=== PATIENT | female | born 1995 | race Caucasian/White ===

== ENCOUNTER 2019-07-12 17:41 | Inpatient (IN) | payer BC ==
[~2019-07-12 17:41] MED LIST: Bupivacaine 0.25% HCL 30 ML VIAL ONE
[2019-07-12 18:22] VITALS: BMI 27.8
[2019-07-12] MEDS ORDERED: Ondansetron PF 4 MG/2 ML Vial IVP PRN (18:23)
[2019-07-12] MEDS ORDERED: NS / Oxytocin 40 units/1000ml 1,000 ML IV PRN (18:23)
[2019-07-12] MEDS ORDERED: Ibuprofen 800 MG TAB PO PRN (18:23)
[2019-07-12] MEDS ORDERED: Promethazine HCl 25 MG/ML VIAL IM PRN (18:23)
[2019-07-12] MEDS ORDERED: hydrALAZINE 20 MG/ML VIAL SLOW IVP PRN (18:23)
[2019-07-12] MEDS ORDERED: Lidocaine 1% (PF) 30 ML VIAL SC PRN (18:23)
[2019-07-12] MEDS ORDERED: Butorphanol Tartrate 1 MG/ML VIAL SLOW IVP PRN (18:23)
[2019-07-12] MEDS ORDERED: Acetaminophen 500 MG TAB PO PRN (18:23)
[2019-07-12] MEDS ORDERED: Fentanyl 4 mcg/Bup 0.1% Cadd 100 ML ONE (18:44)
[2019-07-12 19:01] LABS: Hemoglobin 14.2 g/dL (12.0-16.0); Mean Corpuscular HGB CONC 33.6 g/dL (32.0-36.0); Mean Corpuscular Hemoglobin 29.9 pg (27.0-31.0); Mean Corpuscular Volume 88.9 fL (78.0-98.0); Mean Platelet Volume 8.2 fL (7.4-10.4); Platelet Count 229 thou/uL (130-400); RBC Distribution Width 11.9 % (11.5-14.5); Red Blood Cell (RBC) Count 4.74 mill/uL (4.20-5.40); White Blood Cell (WBC) Count 16.7 thou/uL (4.8-10.8)
[2019-07-12] MEDS: Vancomycin HCl 1 GM in Premix Bag 1 BAG IVPB SCH (19:29)
--- NOTE | 2019-07-12 19:29 | PDOC.LDHP ---
Labor and Delivery H&P Chief complaint: contractions (Started at 230pm today) HPI: at 40 weeks with onset of contractions at 230pm today. Increasing in strength and frequency. No LOF. Good FM reported. Current gestational age (weeks): 40 Due date: 07/10/19 Dating criteria: last menstrual period Grav: 1 Para: 0 Current complications: none Abnormal US findings: No Current medications: pre- vitamins Previous surgical history: none Allergies/Adverse Reactions: Allergies Allergy/AdvReac Type Severity Reaction Status Date / Time amoxicillin Allergy Verified 07/12/19 18:20 lanolin Allergy Verified 07/12/19 18:20 Penicillins Allergy Verified 07/12/19 18:20 Social history: none - Physical Exam Vital signs reviewed and normal: yes General: breathing through contractions (Uncomfortable) Heart: RRR Lungs: CTAB Abdomen: gravid Extremeties: no edema FHT: category 2, variable decelerations (x1 while on her back, resolved with repositioning), variability present [place] contractions every: 2 minutes - Vaginal Exam cm dilated: 3 Effacement: 100% Station: -1 - OB Labs Blood type: A RH: positive Antibody Screen: negative HIV: negative RPR: negative HEPSAg: negative 1 hour GCT: negative GBS: positive Urine drug screen: not done Rubella: immune - Assessment L&D Assessment: term patient in labor - Plan Plan: admit to L&D, labor augmentation if indicated, GBS antibiotic prophylaxis (Vancomycin b/c of PCN allergy), informed consent obtained, anesthesia consult for pain management
[2019-07-12 19:40] LABS: Syphilis Antibody Nonreactive (Nonreactive); Syphilis Antibody Index 0.04 S/CO (<1.00 Non-Reactive)
--- NOTE | 2019-07-12 19:56 | PDOC.EVN ---
Event Note - Event Note Event Note: Patient just got epidural. Comfortable now. SVE 4/100/-1. Bulging bag. AROM with thick green meconium. Montoya placed per RN. CTX every 2 minutes. Continue expectant management. NICU at delivery for MSAF. FHT category II - continue external monitor for now.
[2019-07-13 01:33] LABS: HBSAg Index 0.33 S/CO (0-0.99); Hep B Surf Ag Non-Reactive S/CO (NonReactive)
[2019-07-13] MEDS ORDERED: Fentanyl 4 mcg/Bup 0.1% Cadd 100 ML ONE ×2 (02:08→08:30)
[2019-07-13] MEDS: Lactated Ringer's 1,000 ML IV SCH ×3 (05:33→11:59)
[2019-07-13] MEDS ORDERED: diphenhydrAMINE 50 MG/ML VIAL IVP SCH (06:00)
[2019-07-13] MEDS ORDERED: Lidocaine 1% (PF) 30 ML VIAL ONE (07:01)
[2019-07-13] MEDS ORDERED: NS / Oxytocin 40 units/1000ml 1,000 ML ONE (07:01)
[2019-07-13] MEDS: Vancomycin HCl 1 GM in Premix Bag 1 BAG IVPB SCH (07:15)
[2019-07-13] MEDS ORDERED: FLU VACC QS2019-20(6MOS UP)/PF 60 MCG/0.5 ML SYRINGE IM ONE (09:00)
[2019-07-13 10:28] LABS: Actual Bicarbonate (HCO3a) 20.2 mEq/L (22-28); Base Excess (BEa) -5.7 mEq/L (-2.0 to +3.0)
[2019-07-13 10:30] LABS: Actual Bicarbonate (HCO3v) 20 mEq/L (22-28); Base Excess -5.6 mEq/L (-2.0 to +3.0); pH (Cord, venous) 7.31 (7.32-7.43)
--- NOTE | 2019-07-13 10:43 | PDOC.OPDEL ---
OB Operative/Delivery Note Delivery Dr/Surgeon: Chi Pre-Delivery Diagnosis: active labor Procedure/Post Delivery Dx: spontaneous vaginal delivery (Head OA, nuchal cord x2, shoulders and body esaily followed. Mouth and nares bulb suctioned and infant stimulated and dried. Vigorous cry. Placed on mother's chest.) Weeks gestation: 40 Anesthesia: epidural - Findings A Sex: male - 1 min: 8 - 5 min: 10 - Additional Findings/Plan Placenta delivered: spontaneous (Intact, sent to pathology for maternal fever) Repaired Obstetrical Laceration: 2nd degree (Left labial, 2nd degree perineal repaired with 2.0 vicryl suture. Right vaginal with bleeding repaired in running fashion with 3.0 vicryl and one fingure of 8 stitch for hemostasis. Very edematous leading to oozing. Ice pack and perineal pressure applied with good response.) Estimated blood loss: 361 ml Post delivery plan: routine recovery
[2019-07-13] MEDS ORDERED: Preparation H Ointment 28 GM TUBE PR PRN (12:38)
[2019-07-13] MEDS ORDERED: Benzocaine-Menthol 82.5 ML CAN TOP PRN (12:38)
[2019-07-13] MEDS ORDERED: Milk Of Magnesia 30 ML UDCUP PO PRN (12:38)
[2019-07-13] MEDS ORDERED: NS / Oxytocin 40 units/1000ml 1,000 ML IV SCH (12:38)
[2019-07-13] MEDS ORDERED: Bisacodyl 10 MG SUPP PR PRN (12:38)
[2019-07-13] MEDS ORDERED: hydrALAZINE 20 MG/ML VIAL SLOW IVP PRN (12:38)
[2019-07-13] MEDS: Ibuprofen 800 MG TAB PO SCH ×2 (14:09→20:09)
[2019-07-13] MEDS: Ferrous Sulfate 325 MG TAB PO SCH (18:32)
[2019-07-13] MEDS: Docusate Calcium (SURFAK) 240 MG CAP PO SCH (20:09)
[2019-07-14] MEDS: Ibuprofen 800 MG TAB PO SCH ×3 (04:22→21:02)
[2019-07-14] MEDS: Ferrous Sulfate 325 MG TAB PO SCH ×2 (07:17→17:39)
[2019-07-14] MEDS: Docusate Calcium (SURFAK) 240 MG CAP PO SCH ×2 (09:04→21:02)
--- NOTE | 2019-07-14 10:31 | PDOC.PP ---
Post Progress Note Post Day #: 1 Subjective: Doing well. Pain controlled. Montoya out this AM. Due to void. PO intake tolerated: yes Flatus: yes Ambulation: yes Vital Signs (12 hours) Temp Pulse Resp BP Pulse Ox 07/14/19 08:17 98.5 F 70 20 101/58 L 98 07/14/19 00:30 98.3 F 70 17 115/57 L Weight Weight 152 lb - Physical Examination General: NAD Cardiovascular: no m/r/g, RRR Respiratory: clear to auscultation bilaterally, non-labored breathing Abdominal: + bowel sounds, lochia, no distention, appropriately TTP Extremities: negative homans (B) Result Diagrams: 07/12/19 18:54 Additional Labs: Post Labs Blood Type A POSITIVE 07/12/19 18:54 Hep Bs Antigen Non-Reactive S/CO (NonReactive) 07/12/19 18:54 (1) Vaginal delivery Code(s): O80 - ENCOUNTER FOR FULL-TERM UNCOMPLICATED DELIVERY Status: Acute - Assessment/Plan Routine PP care Ambulate Shower Work on BF Home tomorrow
[2019-07-14] MEDS: HYDROcodone/Acetaminophen 5/325 mg Tablet PO PRN ×2 (13:05→21:02)
[2019-07-15] MEDS: Ibuprofen 800 MG TAB PO SCH ×2 (05:35→13:33)
[2019-07-15] MEDS: Ferrous Sulfate 325 MG TAB PO SCH (07:31)
[2019-07-15 08:34] VITALS: BP 110/69; TEMP 98.7
[2019-07-15] MEDS: Docusate Calcium (SURFAK) 240 MG CAP PO SCH (09:30)
[2019-07-15] MEDS: HYDROcodone/Acetaminophen 5/325 mg Tablet PO PRN ×2 (09:31→13:31)
--- NOTE | 2019-07-15 15:04 | PDOC.PP ---
Post Progress Note Post Day #: 2 Subjective: Doing well. less painful. Ready to go home today. PO intake tolerated: yes Flatus: yes Ambulation: yes Vital Signs (12 hours) Temp Pulse Resp BP Pulse Ox 07/15/19 08:31 98.7 F 63 20 110/69 98 Weight Weight 152 lb - Physical Examination General: NAD Cardiovascular: no m/r/g, RRR Respiratory: clear to auscultation bilaterally Abdominal: + bowel sounds, lochia, no distention, appropriately TTP Extremities: negative homans (B) Neurological: no gross focal deficits Result Diagrams: 07/12/19 18:54 Additional Labs: Post Labs Blood Type A POSITIVE 07/12/19 18:54 Hep Bs Antigen Non-Reactive S/CO (NonReactive) 07/12/19 18:54 (1) Vaginal delivery Code(s): O80 - ENCOUNTER FOR FULL-TERM UNCOMPLICATED DELIVERY Status: Acute - Assessment/Plan ROutine PP care D/C home F/U 6 weeks
== END 2019-07-15 17:30 | disposition home or self-care (01) | DRG 807 ==
LOC: L&D/OP 17:41 → L&D 18:23 → 3SW 07-13 13:21
PROVIDERS: ADMIT Family Medicine; ATTEND Family Medicine
PROC: 10E0XZZ Delivery of Products of Conception, External Approach (ICD-10-PCS; principal; 2019-07-13)
PROC: 0KQM0ZZ Repair Perineum Muscle, Open Approach (ICD-10-PCS; 2019-07-13)
PROC: 10907ZC Drainage of Amniotic Fluid, Therapeutic from Products of Conception, Via Natural or Artificial Opening (ICD-10-PCS; 2019-07-13)
DX: O48.0 Post-term pregnancy (principal); Z37.0 Single live birth; Z3A.40 40 weeks gestation of pregnancy; O70.1 Second degree perineal laceration during delivery; O99.824 Streptococcus B carrier state complicating childbirth; O76 Abnormality in fetal heart rate and rhythm complicating labor and delivery; Z88.1 Allergy status to other antibiotic agents; Z88.0 Allergy status to penicillin; Z88.8 Allergy status to other drugs, medicaments and biological substances; O69.81X0 Labor and delivery complicated by cord around neck, without compression, not applicable or unspecified
CPT/HCPCS: 36415; 51702; 82805; 85027; 86780; 86850; 86900; 86901; 87340; 88307; 99285; J1200; J2001; J3370; S0020